=== PATIENT | female | born 1980 | race Caucasian/White ===

== ENCOUNTER 2019-07-13 10:57 | Outpatient (CLI) | payer BC ==
--- NOTE | 2019-07-13 14:02 | ULT ---
RIGHT LOWER EXTREMITY VENOUS DUPLEX EXAM: 07/13/19 HISTORY: Right leg pain and swelling. Real time color Doppler evaluation of the right lower extremity is performed from groin to calf. Thi s includes evaluation of common femoral, superficial and profunda femoral, saphenous, popliteal, and posterior tibial veins. This shows a patent deep venous system. There is normal compressibility and a ugmentation. There is no evidence of DVT. IMPRESSION: No evidence of DVT of the right lower extremity. POS: OFF
== END 2019-07-13 10:58 | disposition home or self-care (01) ==
LOC: SCSULT 10:57
PROVIDERS: ATTEND Family Medicine
DX: M79.661 Pain in right lower leg (principal)